=== PATIENT | male | born 1980 | race African-American/Black ===

== ENCOUNTER 2019-01-02 14:17 | Emergency (ER) | payer OTHER ==
[~2019-01-02] VITALS: Ht 190.5 cm; Wt 124.0 kg
--- NOTE | 2019-01-02 16:48 | REP ---
Right hand series: Four views. History: Trauma. Laceration. Findings: Four views of the right hand demonstrate a metallic ring over the central proximal phalanx of the ring finger. Overall mineralization pattern is normal. No fracture, subluxation, soft tissue gas, or opaque foreign body is seen. Electronically Signed by Billy Blackwell MD 01/02/2019 04:39 P
[2019-01-02] MEDS ORDERED: LIDOCAINE 2% MDV 20 ML VIAL SC ONE (17:00)
[2019-01-02] MEDS ORDERED: IBUPROFEN 800 MG TAB PO ONE (17:00)
[2019-01-02] MEDS ORDERED: NEOSPORIN OINT 0.9 GM PKT (FLOOR STOCK) TOP ONE (18:15)
[2019-01-02 18:21] VITALS: BP 149/85
== END 2019-01-02 18:25 | disposition home or self-care (01) ==
LOC: M ED 14:17
DX: S61.411A Laceration without foreign body of right hand, initial encounter (principal); X58.XXXA Exposure to other specified factors, initial encounter; Y92.89 Other specified places as the place of occurrence of the external cause; Y99.1 Military activity; F17.210 Nicotine dependence, cigarettes, uncomplicated; D55.0 Anemia due to glucose-6-phosphate dehydrogenase [G6PD] deficiency